=== PATIENT | male | born 1995 | race Caucasian/White ===

== ENCOUNTER 2017-11-18 20:39 | Emergency (ER) | payer MEDICAID ==
[~2017-11-18] VITALS: Ht 177.8 cm; Wt 69.4 kg
[2017-11-18 20:51] VITALS: BP_SYST 133
[2017-11-18 22:23] VITALS: BP_SYST 129
== END 2017-11-18 22:23 | disposition home or self-care (01) ==
LOC: SED 20:39
DX: S93.691A Other sprain of right foot, initial encounter (principal); X58.XXXA Exposure to other specified factors, initial encounter; Y93.66 Activity, soccer; Y92.322 Soccer field as the place of occurrence of the external cause; Y99.8 Other external cause status
CPT/HCPCS: 99284

== ENCOUNTER 2018-06-01 15:00 | Emergency (ER) | payer MEDICAID ==
[~2018-06-01] VITALS: Ht 177.8 cm; Wt 77.1 kg
[2018-06-01 15:11] VITALS: BP_SYST 119
[2018-06-01 16:10] VITALS: BP_SYST 124
== END 2018-06-01 16:05 | disposition home or self-care (01) ==
LOC: SED 15:00
DX: S93.402A Sprain of unspecified ligament of left ankle, initial encounter (principal); W21.02XA Struck by soccer ball, initial encounter; Y93.66 Activity, soccer; Y92.89 Other specified places as the place of occurrence of the external cause; Y99.8 Other external cause status
CPT/HCPCS: 99284

== ENCOUNTER 2019-06-16 10:43 | Emergency (ER) | payer MEDICAID ==
[~2019-06-16] VITALS: Ht 177.8 cm; Wt 74.8 kg
[2019-06-16 10:45] VITALS: BP_SYST 144
--- NOTE | 2019-06-16 10:45 | NUR ---
Patient arrived via POV, AAOx4, and ambulatory with steady gait. Patient c/c of vomiting. Patient states he had his first episode of vomiting one week ago, and then has had ongoing nausea since onset. Patient states he has associated symptoms of chills and sweating that started 2 days ago. Patient states only history of childhood asthma. Will continue to follow up and monitor.
--- NOTE | 2019-06-16 10:45 | NUR ---
Patient to ER bed 6 to gown for evaluation. Side rails up. Assumed care.
--- NOTE | 2019-06-16 10:50 | NUR ---
ER at bedside examining patient.
[2019-06-16] MEDS ORDERED: ONDANSETRON 4 MG ODT TAB PO ONE (11:00)
[2019-06-16 11:02] VITALS: BP_SYST 144
--- NOTE | 2019-06-16 11:02 | NUR ---
Patient given written and verbal discharge instructions and verbalizes understanding. ER MD discussed with patient the results and treatment provided. Patient in stable condition. ID arm band removed. Rx of Augmentin, Zofran given. Patient educated on pain management and to follow up with PMD. Pain Scale 0/10. Opportunity for questions provided and answered. Medication side effect fact sheet provided.
== END 2019-06-16 11:02 | disposition home or self-care (01) ==
LOC: SED 10:43
DX: J06.9 Acute upper respiratory infection, unspecified (principal)
CPT/HCPCS: 99283; Q0162

== ENCOUNTER 2019-08-16 19:58 | Emergency (ER) | payer MEDICAID ==
[~2019-08-16] VITALS: Ht 177.8 cm; Wt 78.9 kg
[2019-08-16 20:40] VITALS: BP_SYST 150
--- NOTE | 2019-08-16 23:49 | NUR ---
Called pt in, no answer
--- NOTE | 2019-08-17 00:19 | NUR ---
Pt ambulatory with crutches to chair for evaluation
--- NOTE | 2019-08-17 01:05 | NUR ---
Dr. Sullivan bedside for pt eval
[2019-08-17] MEDS ORDERED: KETOROLAC TROMETHAMINE 60 MG/2 ML VIAL IM ONE (01:15)
[2019-08-17] MEDS ORDERED: CEPHALEXIN 500 MG CAPSULE PO ONE (01:30)
--- NOTE | 2019-08-17 01:30 | NUR ---
Pt BIB family to ED C/O acute onset of nonradiating, constant, and moderate to severe right ankle pain since today. Patient was at work when a coworker ran into him with a fork lift and he got stuck in between two palettes. Patient states he was pinned in between and ankle got stuck in between No other complaints and or injuries noted VSS no s/s of acute distress Resting on [employer] rails up
[2019-08-17 02:00] VITALS: BP_SYST 150
--- NOTE | 2019-08-17 02:00 | NUR ---
Patient given written and verbal discharge instructions and verbalizes understanding. ER MD discussed with patient the results and treatment provided. Patient in stable condition. ID arm band removed. Rx of [place] and Motrin given. Patient educated on pain management and to follow up with PMD. Pain Scale 0/10 Opportunity for questions provided and answered. Medication side effect fact sheet provided.
== END 2019-08-17 02:00 | disposition home or self-care (01) ==
LOC: SED 19:58
DX: S93.401A Sprain of unspecified ligament of right ankle, initial encounter (principal); T33.821A Superficial frostbite of right foot, initial encounter; W24.0XXA Contact with lifting devices, not elsewhere classified, initial encounter; Y93.89 Activity, other specified; Y92.89 Other specified places as the place of occurrence of the external cause; Y99.0 Civilian activity done for income or pay
CPT/HCPCS: 73610; 96372; 99283; J1885

== ENCOUNTER 2020-01-18 15:37 | Emergency (ER) | payer MEDICAID ==
[~2020-01-18] VITALS: Ht 177.8 cm; Wt 90.7 kg
[2020-01-18 16:04] VITALS: BP_SYST 149
--- NOTE | 2020-01-18 16:09 | NUR ---
Pt triaged, in waiting room at this time
--- NOTE | 2020-01-18 16:15 | NUR ---
Patient arrived via POV, AAOX4, and ambulatory with limping gait. Patient c/c of left ankle pain and swelling status-post rolling his ankle inwards when stepping on a curb approximately 10 days ago. Pain worsens with ambulation. Patient is calm and cooperative, no discoloration noted. Pulses are +2 on affected side. Will continue to follow up and monitor.
--- NOTE | 2020-01-18 16:16 | NUR ---
ER at bedside examining patient.
--- NOTE | 2020-01-18 16:41 | NUR ---
Air splint placed to left ankle by Tricia Grayson. Patient is cooperative. Will continue to follow up and monitor.
[2020-01-18 17:02] VITALS: BP_SYST 149
--- NOTE | 2020-01-18 17:02 | NUR ---
Patient given written and verbal discharge instructions and verbalizes understanding. ER MD discussed with patient the results and treatment provided. Patient in stable condition. ID arm band removed. Rx for Motrin given. Patient educated on pain management and to follow up with PMD. Pain Scale 3/10. Opportunity for questions provided and answered. Medication side effect fact sheet provided.
== END 2020-01-18 17:02 | disposition home or self-care (01) ==
LOC: SED 15:37
DX: S93.492A Sprain of other ligament of left ankle, initial encounter (principal); J45.909 Unspecified asthma, uncomplicated; W22.8XXA Striking against or struck by other objects, initial encounter; Y93.89 Activity, other specified; Y92.89 Other specified places as the place of occurrence of the external cause; Y99.8 Other external cause status
CPT/HCPCS: 73590-TC; 99283; 99284

== ENCOUNTER 2023-01-03 12:00 | Emergency (ER) | payer MEDICAID ==
[~2023-01-03] VITALS: Ht 180.3 cm; Wt 86.2 kg
--- NOTE | 2023-01-03 12:30 | NUR ---
Patient to ER bed H1 to gown for evaluation. Side rails up. Report given to MARCO CARABALLO.
[2023-01-03 12:31] VITALS: BP_SYST 129
--- NOTE | 2023-01-03 12:35 | NUR ---
DR CAMACHO IN [facility] PT FOR EXAM
[2023-01-03] MEDS ORDERED: DIPHTH,PERTUSS(ACELL),TET VAC 0.5 ML VIAL (Tdap) I.M. ONE (12:45)
[2023-01-03 13:14] VITALS: BP_SYST 129
--- NOTE | 2023-01-03 13:14 | NUR ---
Patient given written and verbal discharge instructions and verbalizes understanding. ER MD discussed with patient the results and treatment provided. Patient in stable condition. ID arm band removed.
== END 2023-01-03 13:14 | disposition home or self-care (01) ==
LOC: SED 12:00
DX: Z48.00 Encounter for change or removal of nonsurgical wound dressing (principal); J45.909 Unspecified asthma, uncomplicated; Z79.899 Other long term (current) drug therapy
CPT/HCPCS: 90715; 99283